=== PATIENT | female | born 1990 | race Caucasian/White ===

== ENCOUNTER 2022-01-11 01:41 | Emergency (ER) | payer OTHER, SELFPAY ==
[2022-01-11 01:47] VITALS: BP 132/84; PULSE 82; RESP 16; TEMP 36.9; O2SAT 98
--- NOTE | 2022-01-11 02:06 | ED.EAR ---
HPI - Ear Problem General Chief complaint: Ear Stated complaint: R EAR PAIN Time Seen by Provider: 01/11/22 01:52 Source: patient Mode of arrival: ambulatory Limitations: no limitations History of Present Illness HPI Narrative: This is a 31 year old female that presents to the ER for right ear pain. Started tonight. Associated with decreased hearing. Denies fever, or discharge. Related Data Home Medications Medication Instructions Recorded Confirmed aasydvbqfk-fwkgpjszvnogl-yihd tablet 01/11/22 Allergies Allergy/AdvReac Type Severity Reaction Status Date / Time tetracycline Allergy Mild HIVES, SOB Verified 01/11/22 01:53 Review of Systems Review of Systems: CONSTITUTIONAL: Denies fever ENT: Reports otalgia. All systems reviewed & are unremarkable except as noted in HPI and below PMFSH Past Medical History Medical History (Updated 01/11/22 @ 02:14 by Latesha Landon PA-C) No active medical problems Social History Social History (Updated 01/11/22 @ 02:14 by Latesha Landon PA-C) Smoking status: Never smoker Exam Narrative: GENERAL: Well-appearing, well-nourished, and in no acute distress. HEAD: Normocephalic, atraumatic. EYES: EOMI. ENT: Bilateral external auditory canals are normal. No mastoid tenderness or erythema. Left TM pearly ratliff non-bulging. Right TM is erythematous NECK: Supple. No adenopathy or masses. EXTREMITIES: Normal range of motion. No edema. SKIN: Warm, dry, no rash. NEURO: No focal deficits. Alert and oriented x3. PSYCH: Normal mood and affect Course Vital Signs Vital signs: Vital Signs Temperature 98.4 F 01/11/22 01:47 Pulse Rate 82 01/11/22 01:47 Respiratory Rate 16 01/11/22 01:47 Blood Pressure 132/84 01/11/22 01:47 Pulse Oximetry 98 01/11/22 01:47 Temperature 98.4 F 01/11/22 01:47 Pulse Rate 82 01/11/22 01:47 Respiratory Rate 16 01/11/22 01:47 Blood Pressure 132/84 01/11/22 01:47 Pulse Oximetry 98 01/11/22 01:47 Medical Decision Making MDM Narrative Medical decision making narrative: Patient presents to the emergency department for otalgia starting tonight. Her right TM is erythematous. Will be started on oral antibiotics for otitis media. She is to follow-up with her primary care doctor. She was given warnings to return to the ER Vital Signs Vital Signs: Vital Signs Temperature 98.4 F 01/11/22 01:47 Pulse Rate 82 01/11/22 01:47 Respiratory Rate 16 01/11/22 01:47 Blood Pressure 132/84 01/11/22 01:47 Pulse Oximetry 98 01/11/22 01:47 Temperature 98.4 F 01/11/22 01:47 Pulse Rate 82 01/11/22 01:47 Respiratory Rate 16 01/11/22 01:47 Blood Pressure 132/84 01/11/22 01:47 Pulse Oximetry 98 01/11/22 01:47 Critical Care Time Critical Care Time Critical Care Time: No Discharge Plan Discharge Clinical Impression: Otitis media Qualifiers: Otitis media type: unspecified Chronicity: acute Qualified Code(s): H66.90 - Otitis media, unspecified, unspecified ear Patient Disposition: Home, Self-Care Condition: Stable Instructions: Ear Infection (ED) Additional Instructions: Return to the emergency department if you experience fever, redness and swelling of your ear, worsening pain, or any other symptoms that are concerning to you Take oral antibiotic as prescribed. Tylenol or ibuprofen as needed for pain Follow-up with your primary care doctor Prescriptions: New amoxicillin-pot clavulanate 875-125 mg tablet 1 tablet PO Q12H 5 Days Qty: 10 RF: 0 No Action sbybshhwcn-pxqqaxphwxsfo-woof 50-325-40 mg tablet RF: 0 Follow-up/Referrals: Naomie,PAULO HongP-BC [Primary Care Provider] - 3 Days
[2022-01-11] MEDS: AMOXICILLIN/CLAVULANATE K 875-125 MG TAB 1 TABLET PO (02:19)
== END 2022-01-11 02:25 | disposition home or self-care (01) ==
PROVIDERS: Emergency Provider Emergency Medicine; PCP Nurse Practitioner Family
DX: H66.91 Otitis media, unspecified, right ear (principal)
CPT/HCPCS: 99283; A9270